=== PATIENT | male | born 1955 | race Caucasian/White ===

== ENCOUNTER 2016-03-30 11:51 | Emergency (ER) | payer BC ==
[2016-03-30 12:47] VITALS: BP 138/90
--- NOTE | 2016-03-30 13:54 | RAD ---
HISTORY: 3 weeks worsening pain COMPARISONS: None VIEWS: 6, Frontal, lateral, swimmer's, open-mouth odontoid, and bilateral oblique views of the cervical spine. FINDINGS: The cervical spine is visualized from the skull base through T1. ALIGNMENT: The alignment is normal. VERTEBRAL BODIES: The odontoid process is intact. The atlantoaxial intervals are symmetric. There is anterolateral marginal osteophyte formation at C3-C4 and C5-C6 and to lesser extent at C6-C7 JOINTS: There is diffuse uncovertebral and facet osteoarthritic changes. On the oblique views, there is mild neural foraminal narrowing at C6-C7 and C3-C4 and the left. INTERVERTEBRAL DISCS: There is diffuse loss of intervertebral disc height. SOFT TISSUE: The prevertebral soft tissues are normal. OTHER: The skull base is normal. The lung apices are clear. IMPRESSION: DEGENERATIVE DISC DISEASE AND OSTEOARTHRITIS, MOST PRONOUNCED AT C3-C4 AND C6-C7
--- NOTE | 2016-03-30 13:54 | RAD ---
HISTORY: Worsening thoracic spine pain COMPARISONS: None VIEWS: 3, Frontal and lateral views of the thoracic spine. FINDINGS: ALIGNMENT: There is a mild dextroscoliotic curvature VERTEBRAL BODIES: The vertebral body heights are normal. The interpedicular distances are normal. There is mild anterolateral marginal osteophyte formation JOINTS: Unremarkable. INTERVERTEBRAL DISCS: There is mild diffuse loss of intervertebral disc height. SOFT TISSUE: Unremarkable OTHER: The visualized lungs are clear. IMPRESSION: MILD SCOLIOSIS WITH MILD DEGENERATIVE CHANGES
--- NOTE | 2016-03-30 14:22 | UC ---
Neck Pain HPI - HPI Summary HPI Summary: TWO WEEKS OF UPPER BEACK AND NECK PAIN WITH SPASMS. THREE WEEKS AGO WAS AT PT FOR SHOUDLER PAIN. PAIN SORENESS AND SPASMS IN NECK AND UPPER BACK SEEM TO BE WORSENING. - History of Current Complaint Chief Complaint: UCBackPain Stated Complaint: UPPER BACK PAIN Time Seen by Provider: 03/30/16 13:02 Hx Obtained From: Patient Onset/Duration Of Injury/Symptoms: Weeks Onset/Duration: Lasting Weeks, Worse Since - LAST SIX DAYS Location: Discrete At: - RIGHT UPPER BACK & NECK Character: Dull, Aching, Spasmotic Aggravating Factors: Movement Alleviating Factors: Position Associated Signs & Symptoms: Negative: Nuchal Rigity - Risk Factors Meningitis Risk Factors: Negative - Allergies/Home Medications Allergies/Adverse Reactions: Allergies Allergy/AdvReac Type Severity Reaction Status Date / Time No Known Allergies Allergy Verified 11/06/15 12:34 PMH/Surg Hx/FS Hx/Imm Hx Previously Healthy: Yes Endocrine History Of: Denies: Diabetes, Thyroid Disease Cardiovascular History Of: Denies: Cardiac Disorders, Hypertension, Pacemaker/ICD Respiratory History Of: Denies: COPD, Asthma GI/ History Of: Denies: Ulcer - Surgical History Surgical History: Yes Surgery Procedure, Year, and Place: stent for kidney stones,. Left Knee x2 - Family History Known Family History: Positive: None Negative: Blood Disorder - Social History Occupation: Employed Full-time Lives: With Family Alcohol Use: Occasionally Substance Use Type: None Smoking Status (MU): Former Smoker Have You Smoked in the Last Year: No When Did the Patient Quit Smoking/Using Tobacco: 1989 - Immunization History Most Recent Influenza Vaccination: 2016 Most Recent Tetanus Shot: UTD Review Of Systems Constitutional: Positive: Negative Skin: Positive: Negative Eyes: Positive: Negative ENT: Positive: Negative Respiratory: Positive: Negative Cardiovascular: Positive: Negative Gastrointestinal: Positive: Negative Genitourinary: Positive: Negative Musculoskeletal: Positive: Arthralgia, Myalgia Neurological: Positive: Negative Psychological: Positive: Negative All Other Systems Reviewed And Are Negative: Yes Physical Exam Triage Information Reviewed: Yes Appearance: Well-Appearing, Well-Nourished, Pain Distress - MODERATE Vital Signs: Initial Vital Signs Temp 99.2 F 03/30/16 12:44 Pulse 70 03/30/16 12:44 Resp 16 03/30/16 12:44 BP 138/90 03/30/16 12:44 Pulse Ox 99 03/30/16 12:44 Vital Signs Reviewed: Yes Eye Exam: Normal ENT Exam: Normal ENT: Positive: Normal ENT inspection, Hearing grossly normal, Pharynx normal, TMs normal Dental Exam: Normal Neck exam: Normal Neck: Positive: Supple, Nontender, No Lymphadenopathy Respiratory Exam: Normal Respiratory: Positive: Chest non-tender, Lungs clear, Normal breath sounds, No respiratory distress, No accessory muscle use Cardiovascular Exam: Normal Cardiovascular: Positive: RRR, No Murmur, Pulses Normal Abdominal Exam: Normal Musculoskeletal Exam: Other - PAIN WITH NECK FLEXION Musculoskeletal: Positive: Strength Intact, ROM Intact, No Edema Neurological Exam: Normal Psychological Exam: Normal Psychological: Positive: Normal Response To Family Skin Exam: Normal Neck Pain Course/Dx - Differential Dx/Diagnosis Differential Dx/HQI/PQRI: Sprain, Strain Provider Diagnoses: DEGENERATIVE DISC DISEASE. CERVICAL OSTEOARTHRITIS WITH OSTEOPHYTE FORMATION. CERVICAL MUSCLE STRAIN/SPASM. UPPER BACK PAIN/SPASM Discharge - Discharge Plan Condition: Stable Disposition: HOME Prescriptions: Diazepam TAB(*) [Valium TAB(*)] 5 mg PO TID PRN #12 tab MDD THREE TABS PRN Reason: Spasms HYDROcodone/ACETAMIN 5-325 MG* [[place] 5-325 TAB*] 1 tab PO Q8H PRN #12 tab MDD three tabs PRN Reason: Pain Naproxen [Naproxen 500 MG TABS] 500 mg PO BID #10 tab Patient Education Materials: Cervical Strain (ED), Osteoarthritis (ED), Muscle Spasm (ED), Back Pain (ED), Degenerative Disc Disease (ED) Forms: *Work Release Referrals: [facility]IAN REFERRAL [Outside] No Primary Care Phys,NOPCP [Primary Care Provider] -
== END 2016-03-30 14:28 | disposition home or self-care (01) ==
LOC: UCEAST 11:51
DX: S16.1XXA Strain of muscle, fascia and tendon at neck level, initial encounter (principal); X58.XXXA Exposure to other specified factors, initial encounter; Y93.9 Activity, unspecified; Y92.9 Unspecified place or not applicable; M51.34 Other intervertebral disc degeneration, thoracic region; M50.31 Other cervical disc degeneration, high cervical region; M50.323 Other cervical disc degeneration at C6-C7 level; M47.812 Spondylosis without myelopathy or radiculopathy, cervical region; M62.830 Muscle spasm of back; Z87.891 Personal history of nicotine dependence
CPT/HCPCS: 72050; 72070; 99212; G0463

== ENCOUNTER 2016-07-30 06:21 | Day surgery (SDC) | payer BC, OTHER ==
[~2016-07-30 06:21] MED LIST: Buffered Lidocaine 0.9% SYRIN* 5 ML/SYR SYRINGE INTRADERM ONE; Buffered Lidocaine 0.9% SYRIN* 5 ML/SYR SYRINGE ONE; Dexamethasone IV* 4 MG/ML 1 ML (4 MG) IV SLOW PU ONE; Dexamethasone IV* 4 MG/ML 1 ML (4 MG) ONE; Famotidine IV* 10 MG/ML 2 ML (20 mg) IV ONE; Famotidine IV* 10 MG/ML 2 ML (20 mg) ONE; ceFAZolin 2 GM PREMIX(*) 2 GM/50 ML BAG IVPB ONE
[2016-07-30] MEDS ORDERED: Propofol* 10 MG/ML 20 ML BTL IV PUSH ONE ×2 (07:08→08:52)
[2016-07-30] MEDS ORDERED: Lidocaine 2% PF * 5 ML VIAL ONE (07:08)
[2016-07-30] MEDS ORDERED: Rocuronium* 10 MG/ML VIAL ONE (07:09)
[2016-07-30] MEDS ORDERED: fentaNYL* 50 MCG/ML 2 ML VIAL (100 MCG VIAL) ONE ×2 (07:09→09:24)
[2016-07-30] MEDS ORDERED: Midazolam* 1 MG/ML 5 ML VIAL (5 MG) ONE (07:09)
[2016-07-30] MEDS ORDERED: EPINEPHrine AMP 1 MG/ML ONE (07:12)
[2016-07-30] MEDS ORDERED: Bupivacaine 0.5% W/EPI SDV* 10 ML VIAL INJ ONE (07:13)
[2016-07-30] MEDS ORDERED: ROPIVACAINE 5 MG/ML 30 ML BTL (0.5%) ONE (07:14)
[2016-07-30] MEDS ORDERED: EPHEDrine (Pressors)* 50 MG/ML VIAL ONE (08:21)
[2016-07-30] MEDS ORDERED: Ondansetron INJ* 2 MG/ML VIAL ONE (08:48)
[2016-07-30] MEDS ORDERED: oxyCODONE/Acetamin 5/325 MG* TAB PO PRN (09:00)
[2016-07-30] MEDS ORDERED: fentaNYL* 50 MCG/ML 2 ML VIAL (100 MCG VIAL) IV PRN (09:00)
[2016-07-30] MEDS ORDERED: Ketorolac INJ* 30 MG/ML 1 ML VIAL IV PRN (09:00)
[2016-07-30] MEDS ORDERED: PROCHLORPERAZINE INJ 5 MG/ML 2 ML VIAL IV PRN (09:00)
[2016-07-30] MEDS ORDERED: PROCHLORPERAZINE INJ 5 MG/ML 2 ML VIAL ONE (11:34)
[2016-07-30] MEDS ORDERED: Scopolamine 1.5 mg* PATCH ONE (12:12)
[2016-07-30 12:21] VITALS: BP 114/73
--- NOTE | 2016-08-01 07:14 | OP ---
OPERATIVE REPORT: DATE OF OPERATION: 07/30/16 DATE OF : 53 SURGEON: Don Gill MD PHYSICIAN BUS GREASER: SALIMA Shankar A physician ex assistant/program director was required throughout the duration of the procedure for positioning and instrument management. ANESTHESIOLOGIST: Preet Norton MD ANESTHESIA: General anesthesia, regional interscalene block anesthesia. PRE-OP DIAGNOSES: 1. Left shoulder acromioclavicular joint osteoarthritis. 2. Left shoulder subacromial bursitis and impingement. 3. Left shoulder rotator cuff tendinitis. 4. Left shoulder capsulitis, primary or secondary. POST-OP DIAGNOSES: 1. Left shoulder acromioclavicular joint osteoarthritis. 2. Left shoulder subacromial bursitis and impingement. 3. Left shoulder rotator cuff tendinitis. 4. Left shoulder capsulitis, primary or secondary. OPERATIVE PROCEDURE: 1. Left shoulder manipulation under anesthesia. 2. Left shoulder arthroscopic distal clavicle resection. 3. Left shoulder subacromial decompression. 4. Left shoulder limited arthroscopic debridement. ANTIBIOSIS: 2 g Ancef IV. IV FLUIDS: See anesthesia note. COMPLICATIONS: None. SPECIMEN: None. IMPLANTS: None. ESTIMATED BLOOD LOSS: Minimal. 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 The patient was followed by Dr. Sheldon for a long period of time, treated with left shoulder subacromial glenohumeral joint cortisone injections and long courses of physical therapy. The patient used multiple NSAIDs as well as tramadol for pain. The patient had to stop work secondary to his discomfort with ADLs, but also had nighttime pain. He described it as superior and posterior. MRI had demonstrated significant AC joint degenerative changes with very small osteophytes off acromion and acromioclavicular joint, rotator cuff tendinosis of the supraspinatus, but no tear and some stigmata of adhesive capsulitis. The patient opted for surgical management. We booked the patient for left shoulder subacromial decompression, distal clavicle resection, manipulation under anesthesia, possible lysis of adhesions. I told him I would evaluate the rotator cuff and biceps as well as superior labrum, I would fix those structures as needed. We discussed management of the biceps whether it be released or tenodesis, and the patient decided ultimately, preoperatively that he requested a tenodesis should that be treated. DESCRIPTION OF PROCEDURE: Preoperative written consent was obtained. Operative extremity was marked in preoperative holding. The patient was given an interscalene regional anesthetic block in his preoperative holding room. The patient was taken back to the operating room and placed supine on operating table. The patient was sedated and intubated with an endotracheal tube. The patient was placed in the lateral decubitus position. All bony prominences padded. Axillary roll placed. The left upper extremity was placed in 15 pounds of traction, with the appropriate forward flexion and abduction angles of the arm. Prior to being placed in the lateral decubitus position, when the patient was still supine, a manipulation under anesthesia was performed. We did a mini time -out, prior to starting this component of the procedure. I proceeded through my standard routine of range of motions in a manipulation under anesthesia. I felt a crackling with forward flexion and with internal rotation. I regained perhaps 5-10 degrees additional of forward flexion and perhaps 5-15 degrees of internal rotation. The patient's final ranges of motion at the end of the manipulation under anesthesia were approximately 175 degrees of forward flexion , 90 degrees of external rotation, and 75 degrees of internal rotation. While the gains were certainly not dramatic and the shoulder was not significantly stiff under anesthesia, I did clearly palpate some tearing with manipulation. With the patient in the lateral decubitus position, we then prepped and draped. Surgical time-out was performed. A spinal needle was inserted posterior length of the glenohumeral joint. 25 cc of normal saline were infused into the joint. The arthroscope was then used to enter the glenohumeral joints. Diagnostic arthroscopy was then started. There was some blushes of red throughout the joint, as is often seen after a manipulation under anesthesia has been performed. Without further ado, I therefore created my anterior glenohumeral joint portal under direct visualization. I entered an arthroscopic shaver through that joint, just placed it in the middle of the joint and sucked out the joint of some debris, red-tinged fluid and improved visualization. I then began the formal diagnostic arthroscope. No cartilage defects or significant wear at the humeral head or glenoid were appreciated. The rotator cuff demonstrated no tear of the infra or supraspinatus. I visualized the subscapularis. There was no clear tear of this tendon. It was firmly attached to bone. I visualized that with the humeral head posteriorly translated internally and externally rotated. However, there was some footprints, medial to its insertion visible. However, there was no clear torn off tissue or retracted subscapularis tendon to repair. This coupled with the patient's lack of any pain or weakness on belly-press or bear-hug testing, maybe I think that this would not require any type of repair, but I resolved to return to it at the conclusion of my diagnostic arthroscope. I assessed the biceps. I pulled it into the joint. There was no tearing or tendinosis of the biceps visible. Certainly, not subluxed. There was some fraying to the superior labrum. I debrided very likely the periphery or the central most component of the labrum to get a better field for its contour. At first, I thought there might be an unstable labral tear. However, with an arthroscopic probe, I reached under it and there was no visible footprint of superior labrum. There was no significant lift-off of the labrum off of the glenoid rim. Therefore, without an unstable labral tear or biceps pathology, I decided not to treat the biceps. I looked into the rotator interval. There was not a significant amount of scar tissue present in the rotator interval as is often seen in stiff shoulders. I debrided a small amount of tissue in the rotator interval until I could feel and then see the coracoid. I then took a look at the capsule. There was not a taut, stiffened capsule adjacent to the labrum circumferentially. I saw folds in the capsule both anteriorly and posteriorly, indicative of some redundancy. There was some clear tearing of the posteroinferior capsule, that is very likely to be what I opened up with my manipulation under anesthesia. I next returned to the subscapularis and viewed its undersurface. While there was some bare area visible there, there was no clear tear, and the patient was asymptomatic with subscapularis testing preop, so I decided not to attempt any sort of significant debridement or repair there. I decided to visualize the capsule a little bit better, so I created an anterosuperior portal and placed my arthroscope in it and viewed from there circumferentially, although I was unable to see perfectly at 6 o'clock even with my ex assistant/program director adding lateral traction to the shoulder. So, I actually viewed from posteriorly, then viewed from anteriorly, then viewed from anterosuperiorly. I decided it was not necessary to use the hook-tip probe that I had available to do a formal capsular release. Instruments and fluid removed from the glenohumeral joint. I next went to the subacromial space. I entered from posterior and anterior. I used a disposable Mitek cannula and applied the flow to it. A lateral subacromial portal established under direct visualization. There was not a significant amount of bursitic tissue in the subacromial space. I debrided the bursitic tissue that was present and opened up the gutters with an arthroscopic shaver. There was minimal spurring of the undersurface of the acromion and I removed it, an approximately 5-mm of the anterior hook of the acromion with an arthroscopic bur. There was increasing bursitic tissue about the AC joint. I removed that with an arthroscopic shaver and then I removed the distal end of the clavicle with an arthroscopic bur. I visualized all 4 corners of the distal clavicle to ensure adequacy of distal clavicle resection. Instruments and fluids were removed from the joint. Skin incisions were closed with [id number] and twelve stitches using nylon 4-0 sutures. Xeroform, 4x4s, ABD, and foam tape. The patient was turned to the supine position and was extubated and transferred to the PACU. DISPOSITION: The patient will follow up with me in 10 to 14 days. He will start physical therapy immediately. He will take Percocet as needed for pain. He will take aspirin 325 mg p.o. b.i.d. for 2 weeks for DVT prophylaxis. [id number]/[facility] #: [id number] [facility]
== END 2016-07-30 13:00 | disposition home or self-care (01) ==
LOC: OR 06:21
PROVIDERS: ATTEND Orthopaedic Surgery
DX: M19.012 Primary osteoarthritis, left shoulder (principal); M75.52 Bursitis of left shoulder; M75.42 Impingement syndrome of left shoulder; M75.82 Other shoulder lesions, left shoulder; M75.02 Adhesive capsulitis of left shoulder; N40.0 Benign prostatic hyperplasia without lower urinary tract symptoms
CPT/HCPCS: A9270-GY; J0171; J0690; J0780; J1100; J2250; J2405; J2704; J2795; J3010

== ENCOUNTER 2018-04-24 10:49 | Day surgery (SDC) | payer OTHER ==
[~2018-04-24 10:49] MED LIST changes: -Buffered Lidocaine 0.9% SYRIN* 5 ML/SYR SYRINGE INTRADERM ONE; -Buffered Lidocaine 0.9% SYRIN* 5 ML/SYR SYRINGE ONE; +Buffered Lidocaine 1% SYRIN* 1 ML/SYRINGE INTRADERM ONE; -Dexamethasone IV* 4 MG/ML 1 ML (4 MG) IV SLOW PU ONE; -Dexamethasone IV* 4 MG/ML 1 ML (4 MG) ONE; -Famotidine IV* 10 MG/ML 2 ML (20 mg) IV ONE; -Famotidine IV* 10 MG/ML 2 ML (20 mg) ONE; +Lactated Ringers 1000 ML Bag* 1,000 ML IV SCH; -ceFAZolin 2 GM PREMIX(*) 2 GM/50 ML BAG IVPB ONE
[2018-04-24] MEDS ORDERED: Bupivacaine 0.5% W/EPI SDV* 30 ML VIAL ONE (10:57)
[2018-04-24] MEDS ORDERED: ceFAZolin 2 GM in NS PREMIX(*) 2 GM/100 ML BAG IVPB ONE (11:20)
[2018-04-24] MEDS ORDERED: Midazolam* 1 MG/ML 5 ML VIAL (5 MG) ONE (11:39)
[2018-04-24] MEDS ORDERED: fentaNYL* 50 MCG/ML 2 ML VIAL (100 MCG VIAL) ONE ×2 (11:39→14:17)
[2018-04-24] MEDS ORDERED: Scopolamine 1.5 mg* PATCH ONE (11:48)
[2018-04-24] MEDS ORDERED: Famotidine IV* 10 MG/ML 2 ML (20 mg) ONE (11:49)
[2018-04-24] MEDS ORDERED: Naloxone* 0.4 MG/ML 1 ML VIAL IV PRN (11:50)
[2018-04-24] MEDS ORDERED: Morphine 4 MG/ML VIAL (1 ml) 4 MG/ML VIAL IV PRN (11:50)
[2018-04-24] MEDS ORDERED: fentaNYL* 50 MCG/ML 2 ML VIAL (100 MCG VIAL) IV PRN (11:50)
[2018-04-24] MEDS ORDERED: oxyCODONE/Acetamin 5/325 MG* TAB PO PRN (11:50)
[2018-04-24] MEDS ORDERED: DiMENhydriNATE IV* 50 MG/ML VIAL IV PUSH PRN (11:50)
[2018-04-24] MEDS ORDERED: PROCHLORPERAZINE INJ 5 MG/ML 2 ML VIAL IV PRN (11:50)
[2018-04-24] MEDS ORDERED: Bupivacaine 0.25% SDV* 30 ML ONE (12:29)
[2018-04-24] MEDS ORDERED: Bupivacaine 0.25% EPI 200,000* 30 ML SDV ONE (12:29)
[2018-04-24] MEDS ORDERED: Lidocaine 2% PF * 5 ML VIAL ONE (13:41)
[2018-04-24] MEDS ORDERED: Ketorolac INJ* 30 MG/ML 1 ML VIAL ONE (13:41)
[2018-04-24] MEDS ORDERED: Dexamethasone IV* 4 MG/ML 1 ML (4 MG) ONE (13:41)
[2018-04-24] MEDS ORDERED: Ondansetron INJ* 2 MG/ML VIAL ONE (13:41)
[2018-04-24] MEDS ORDERED: Propofol* 10 MG/ML 20 ML BTL ONE (13:41)
[2018-04-24] MEDS ORDERED: PROCHLORPERAZINE INJ 5 MG/ML 2 ML VIAL ONE (13:41)
[2018-04-24 15:49] VITALS: BP 121/77
--- NOTE | 2018-04-24 23:56 | OP ---
DATE OF SURGERY: 04/24/18 [facility] DATE OF : 53 ATTENDING PHYSICIAN: Chidi Garsia MD. METAL STAMPER: SALIMA Hagen. ANESTHESIOLOGIST: Dr. Reese. ANESTHESIA: General interscalene block. PRE-OP DIAGNOSES: Left residual acromioclavicular joint arthritis and rotator cuff tear. POST-OP DIAGNOSES: Left residual acromioclavicular joint arthritis and rotator cuff tear, bicipital tendinitis with superior labral tear. OPERATIVE PROCEDURE: Left shoulder arthroscopy with 1. Extensive glenohumeral debridement. 2. Revision subacromial decompression with acromioplasty. 3. Revision distal clavicle excision. 4. Rotator cuff repair, supraspinatus in double-row fashion. 5. Subpectoral biceps tenodesis. COMPLICATIONS: None. ESTIMATED BLOOD LOSS: Minimal. IMPLANTS USED: 1 Healicoil, 1 Multifix, and 1 Q-Fix. INDICATIONS: Wayne Hansen is a 62-year-old male who had a work-related injury in 2016. He had undergone previous surgery. He continues to struggle. He was diagnosed with a full-thickness tear of the rotator cuff based on x-ray arthrogram. After extensive discussion of risks and benefits of surgery, risks included but not limited to bleeding, infection, damage to nerves, vessels, surrounding structures, wound nonhealing, persistent pain, need for surgery, scarring, stiffness, incomplete relief of symptoms, risk of anesthesia, he has elected to proceed with surgical treatment. DESCRIPTION OF PROCEDURE: The patient was greeted in the preoperative area by the attending surgeon. The correct extremity was marked and the consent was confirmed. The patient underwent interscalene nerve block by the anesthesiologist, after which he was brought back to the operating suite where he was placed in the supine position on the operating table. He then underwent general anesthesia and LMA intubation, after which he was placed in the right lateral decubitus position. All bony prominences were padded. He was secured with pegboard. The left shoulder was then prepped and draped in the usual sterile fashion beginning with chlorhexidine soap, scrub, and alcohol wipe and a final prep with ChloraPrep. After appropriate surgical pause indicating side, site, procedure, and administration of antibiotics, an 11-blade was used to make an incision posterolaterally. The scope was brought into the joint. The joint was examined. There were small areas of grade 1 and 2 changes in the inferior aspect of the glenoid. The anteroposterior superior labrum had unstable fraying. The biceps superior labrum was torn and the biceps had synovitis and tendinosis. An anterior portal was made in outside-in fashion. There was evidence of at least partial- thickness tearing of the rotator cuff. Shaver was used to debride back the anteroposterior superior labrum. The biceps was tenotomized for later tenodesis. The undersurface of the rotator cuff was debrided back. Subscap was found to be intact with some mild fraying. Once the intraarticular portion was completed, attention was directed to the subacromial space. The scope was positioned in the subacromial space. A lateral portal was made in outside-in fashion. Shaver was used to debride back the abundant bursa that was present. The undersurface of the acromion was skeletonized. There was spillover residual spur which was debrided back using 4-0 oval bur. The AC joint was then examined. He had a previous distal clavicle excision. There was a small remnant of bone that was still present. This was debrided back to ensure that no more than 8 mm was resected of the distal clavicle and no damage to CC ligament, after which attention was directed to the cuff. The cuff had been previously marked with an 0 PDS suture. There was evidence of full-thickness tearing. The tear was completed with an 11-blade. Shaver was used to debride back the cuff and the greater tuberosity was prepared in the usual fashion with electrocautery device, the rasp, as well as the bur, after which a 4.75 Healicoil anchor was placed with excellent purchase. Sutures were passed in a horizontal mattress configuration and then tied down and then passed through a Multifix for lateral row fixation, after which attention was directed to the biceps. The bed was air-planed to the side and the anterior aspect of the shoulder was prepped again. A 15-blade was used to make an incision in line with the biceps. The soft tissues were carefully exposed to expose the pec. The remainder of dissection was done bluntly. The biceps was then brought through the wound, found to have abundant synovitis and tendinosis. The groove was prepared in the usual fashion with electrocautery device, red ball rasp, and osteotome. The Q-Fix drill guide was then used to drill unicortically. Q-Fix was deployed with excellent purchase. The suture was then passed through the tendon in a [place] type configuration and excess stump was excised. The biceps was then tied down. The wounds were then copiously irrigated with sterile saline. The portals were closed with 3-0 nylon and the skin was closed with 3-0 Monocryl in layers. Sterile dressings were applied. Cryo/Cuff, UltraSling were applied. He was woken from anesthesia and transferred to PACU in stable condition. POSTOPERATIVE PLAN: He will be nonweightbearing. He will be in a sling for 6 weeks. He will discharged with pain medications. DVT prophylaxis is considered , but deferred due to no previous personal or family history. I will see the patient back in 10 to 14 days. [id number]/[facility] #: [id number] MTDD
[2018-04-27] MEDS ORDERED: Scopolamine PATCH Remove* 1 NOTE MISC PATCH OFF ONE (11:52)
== END 2018-04-24 16:22 | disposition home or self-care (01) ==
LOC: OREAST 10:49
PROVIDERS: ATTEND Orthopaedic Surgery
DX: S46.012D Strain of muscle(s) and tendon(s) of the rotator cuff of left shoulder, subsequent encounter (principal); S43.492D Other sprain of left shoulder joint, subsequent encounter; M19.212 Secondary osteoarthritis, left shoulder; M75.22 Bicipital tendinitis, left shoulder; Z87.891 Personal history of nicotine dependence; X58.XXXD Exposure to other specified factors, subsequent encounter; Y92.9 Unspecified place or not applicable; G89.18 Other acute postprocedural pain
CPT/HCPCS: 88304; A9270-GY; C1713; C1776; J0690; J0780; J1100; J1885; J2250; J2405; J2704; J3010

== ENCOUNTER 2023-10-06 05:59 | Observation (INO) ==
[~2023-10-06 05:59] MED LIST changes: +BUPIVACAINE **LIPOSOME/PF 13.3 MG/ML (266MG/ 20ML) VIAL (RESTRICTED) INFIL SCH; -Buffered Lidocaine 1% SYRIN* 1 ML/SYRINGE INTRADERM ONE; -Lactated Ringers 1000 ML Bag* 1,000 ML IV SCH
[2023-10-06] MEDS: Scopolamine 1 mg/72hr PATCH TRANSDERM ONE (06:27)
[2023-10-06] MEDS: Buffered Lidocaine 1% SYRIN 1 ml INTRADERM ONE (06:28)
[2023-10-06 06:33] LABS: Rapid COVID-19 Molecular Undetected (Undetected)
[2023-10-06] MEDS ORDERED: ceFAZolin 2 GM PREMIX 2 GM/50 ML BAG ONE (06:35)
[2023-10-06] MEDS ORDERED: Bupivacaine 0.25% SDV 30 ML INJ ONE (06:54)
[2023-10-06] MEDS: Lactated Ringers 1000 ml BAG 1,000 ML IV SCH (06:59)
[2023-10-06] MEDS ORDERED: Ondansetron 4 mg VIAL 2 MG/ML 2 ml VIAL IV PRN (07:07)
[2023-10-06] MEDS ORDERED: Lidocaine 2% PF 5 ML VIAL ONE (07:11)
[2023-10-06] MEDS ORDERED: Midazolam 2 mg/2 ml VIAL 1 mg/ml 2 ml VIAL (2 mg) ONE (07:12)
[2023-10-06] MEDS ORDERED: fentaNYL 100 mcg/2 ml 50 MCG/ML VIAL ONE ×2 (07:12→12:47)
[2023-10-06] MEDS ORDERED: Propofol 10 MG/ML 20 ML BTL ONE (07:12)
[2023-10-06] MEDS ORDERED: Scopolamine 1 mg/72hr PATCH ONE (07:14)
[2023-10-06] MEDS ORDERED: Rocuronium 50 mg VIAL 10 mg/ml 5 ml VIAL (50 mg) ONE (07:20)
[2023-10-06] MEDS ORDERED: HYDROmorphone 0.5 MG/0.5 ML SYRINGE IV ONE ×2 (08:12→08:26)
[2023-10-06] MEDS ORDERED: Ondansetron 4 mg VIAL 2 MG/ML 2 ml VIAL IV ONE (08:14)
[2023-10-06] MEDS ORDERED: Dexamethasone IV 4 MG/ML VIAL 1 ml VIAL IV SLOW PU ONE (08:14)
[2023-10-06] MEDS ORDERED: Rocuronium 50 mg VIAL 10 mg/ml 5 ml VIAL (50 mg) IV ONE (09:12)
[2023-10-06] MEDS ORDERED: Naloxone 0.4 mg VIAL 0.4 mg/ml 1 ml VIAL IV PRN ×2 (10:15)
[2023-10-06] MEDS ORDERED: fentaNYL 100 mcg/2 ml 50 MCG/ML VIAL IV ONE (11:52)
[2023-10-06] MEDS ORDERED: Ondansetron 4 mg VIAL 2 MG/ML 2 ml VIAL ONE (12:47)
[2023-10-06] MEDS: Ondansetron 4 mg VIAL 2 MG/ML 2 ml VIAL IV PRN (12:48)
[2023-10-06] MEDS: fentaNYL 100 mcg/2 ml 50 MCG/ML VIAL IV PRN (12:49)
[2023-10-06 13:09] LABS: ABS Lymphocytes 0.7 10^3/uL (1.0-4.8); ABS Monocytes 0.2 10^3/uL (0.0-1.1); ABS Neutrophils 14.3 10^3/uL (1.5-7.6); ABS Nucleated RBC 0.01 10^3/ul; Eosinophil % 0.3 %; Hematocrit 40.2 % (38-53); Hemoglobin 13.3 g/dL (13.2-16.3); Lymphocyte % 4.7 %; Mean Corpuscular Hemoglobin 31.9 pg (27-33); Mean Corpuscular Hgb Conc 33.1 g/dL (31-36); Mean Corpuscular Volume 96.4 fL (80-97); Mean Platelet Volume 8.6 fL (7.5-11.2); Nucleated Red Blood Cells % 0.1 %/100WBC (0.0-0.8); Platelet Count 249 10^3/uL (150-450); Red Blood Count 4.18 10^6/uL (4.06-5.63); Red Cell Distribution Width 12.9 % (12-17); White Blood Count 15.3 10^3/uL (3.6-10.2)
[2023-10-06 14:03] LABS: Calcium 8.4 mg/dL (8.6-10.3); Creatinine, Serum 1.06 mg/dL (0.67-1.17); Potassium 4.5 mmol/L (3.5-5.0)
[2023-10-06] MEDS: NS 0.9% 1000 ml BAG 1,000 ML IV SCH (14:28)
[2023-10-06] MEDS: Magnesium Hydroxide LIQ 30 ML UDC PO SCH (14:47)
[2023-10-06] MEDS: Neomycin/Polym/Bacit TOP OINT 15 GM TOPICAL SCH (16:21)
[2023-10-07 05:51] LABS: Hematocrit 34.6 % (38-53); Hemoglobin 12.1 g/dL (13.2-16.3); Mean Corpuscular Hemoglobin 33.2 pg (27-33); Mean Corpuscular Hgb Conc 34.9 g/dL (31-36); Mean Corpuscular Volume 95.1 fL (80-97); Mean Platelet Volume 8.7 fL (7.5-11.2); Platelet Count 227 10^3/uL (150-450); Red Blood Count 3.63 10^6/uL (4.06-5.63); Red Cell Distribution Width 12.8 % (12-17); White Blood Count 11.9 10^3/uL (3.6-10.2)
[2023-10-07 06:27] LABS: Calcium 7.4 mg/dL (8.6-10.3); Creatinine, Serum 0.86 mg/dL (0.67-1.17); Potassium 4.2 mmol/L (3.5-5.0); eGFR CKD-EPI 93.7 (>60)
[2023-10-07 09:46] VITALS: BP 114/73
[2023-10-07 18:02] LABS: ABS Eosinophils 0.1 10^3/uL (0.0-0.5); ABS Lymphocytes 1.5 10^3/uL (1.0-4.8); ABS Neutrophils 9.3 10^3/uL (1.5-7.6); Eosinophil % 0.6 %; Hematocrit 35.4 % (38-53); Hemoglobin 11.9 g/dL (13.2-16.3); Lymphocyte % 12.3 %; Mean Corpuscular Hemoglobin 32.2 pg (27-33); Mean Corpuscular Hgb Conc 33.6 g/dL (31-36); Mean Corpuscular Volume 95.7 fL (80-97); Mean Platelet Volume 9.1 fL (7.5-11.2); Platelet Count 235 10^3/uL (150-450); Red Cell Distribution Width 12.8 % (12-17); White Blood Count 11.9 10^3/uL (3.6-10.2)
== END 2023-10-07 11:30 | disposition home or self-care (01) ==
LOC: AA 05:59 → INTOOBSV 05:59 → SSU 07:07
PROVIDERS: ADMIT Urology; ATTEND Urology